=== PATIENT | female | born 1950 ===

== ENCOUNTER 2020-06-06 15:10 | Inpatient (IN) | payer MEDICARE, BC ==
[2020-06-06] MEDS ORDERED: Ondansetron PF 4 MG/2 ML Vial IVP PRN (16:48)
[2020-06-06] MEDS ORDERED: Calcium Carbonate 500 MG ChewTAB PO PRN (16:48)
[2020-06-06] MEDS ORDERED: Ondansetron ODT 4 MG TAB PO PRN (16:48)
[2020-06-06] MEDS ORDERED: Acetaminophen 325 MG TAB PO PRN (16:48)
[2020-06-06] MEDS ORDERED: Albuterol 200 PUFF (6.7GM INHALER) INH PRN (16:59)
[2020-06-06 17:05] VITALS: BMI 29.6
[2020-06-06] MEDS: Cefepime 1 GM in Sodium Chloride 0.9% 100 ML IVPB SCH (17:24)
[2020-06-06] MEDS ORDERED: GUAIFENESIN SF SOLN 200 MG/10 ML UDCUP PO PRN (18:55)
[2020-06-06] MEDS ORDERED: Melatonin 3 MG TAB PO PRN (18:55)
[2020-06-06] MEDS ORDERED: hydrALAZINE 20 MG/ML VIAL SLOW IVP PRN (18:55)
[2020-06-06 19:08] LABS: #Basophils 0.1 thou/uL (0.0-0.2); #Eosinphils 0.1 thou/uL (0.0-0.7); #Lymphocytes 1.1 thou/uL (1.20-3.40); #Monocytes 1.1 thou/uL (0.11-0.59); #Neutrophils 7.3 thou/uL (1.40-6.50); %Basophils 0.7 % (0.0-1.0); %Eosinophils 1.1 % (0.0-10.0); %Lymphocytes 11.1 % (21.0-51.0); %Monocytes 11.4 % (0.0-10.0); %Neutrophils 75.8 % (42.0-75.0); Hemoglobin 14.1 g/dL (12.0-16.0); Mean Corpuscular HGB CONC 31.9 g/dL (32.0-36.0); Mean Corpuscular Hemoglobin 25.9 pg (27.0-31.0); Mean Corpuscular Volume 81.2 fL (78.0-98.0); Mean Platelet Volume 8.1 fL (7.4-10.4); Platelet Count 426 thou/uL (130-400); Red Blood Cell (RBC) Count 5.43 mill/uL (4.20-5.40); White Blood Cell (WBC) Count 9.6 thou/uL (4.8-10.8)
[2020-06-06 19:20] LABS: PTT 31.5 sec (22.9-36.1); Prothrombin Time 13.6 sec (12.0-14.7)
[2020-06-06 19:21] LABS: D-Dimer Test 2.06 *mcg/mL (0.27-0.43)
[2020-06-06 19:34] LABS: Lactic Acid 1.7 mmol/L (0.5-2.2)
[2020-06-06 19:40] LABS: ALT (SGPT) 14 U/L (8-55); AST (SGOT) 21 U/L (5-34); Albumin 3.4 g/dL (3.4-4.8); Alkaline Phosphatase 111 U/L (40-110); Anion Gap 16 mmol/L (10-20); BUN (Urea Nitrogen) 7 mg/dL (9.8-20.1); Bilirubin, Total 0.4 mg/dL (0.2-1.2); CRP (Inflammatory) 7.03 mg/dL (= or < 0.5); Calc. Creatinine Clearance 68 mL/min (70-130); Calcium 8.9 mg/dL (7.8-10.44); Carbon Dioxide 21 mmol/L (23-31); Chloride 110 mmol/L (98-107); Globulin 4.5 g/dL (2.4-3.5); Glucose 118 mg/dL (80-115); Magnesium 2.3 mg/dL (1.6-2.6); Phosphorus 3.8 mg/dL (2.3-4.7); Potassium 3.3 mmol/L (3.5-5.1); Protein, Total 7.9 g/dL (5.8-8.1); Sodium 144 mmol/L (136-145)
[2020-06-06] MEDS ORDERED: Potassium Chloride 20 MEQ TAB PO SCH (21:00)
[2020-06-06] MEDS: Albuterol 200 PUFF (6.7GM INHALER) INH SCH ×2 (21:10→23:13)
[2020-06-06] MEDS ORDERED: Electrolyte Replacement Protocol 1 EACH FS SCH (21:30)
[2020-06-06] MEDS: Amlodipine 5 MG TAB PO SCH (21:35)
[2020-06-06] MEDS: Doxycycline 100 MG CAP PO SCH (21:35)
[2020-06-06] MEDS: Zinc Sulfate 220 MG CAP PO SCH (21:35)
[2020-06-06] MEDS: guaiFENesin ER 600 MG TAB PO SCH (21:36)
[2020-06-06] MEDS: Senokot S 8.6-50 MG TAB PO SCH (21:36)
[2020-06-07 02:47] LABS: SARS-CoV-2 PCR by NAA DETECTED (NotDetected)
[2020-06-07] MEDS: Albuterol 200 PUFF (6.7GM INHALER) INH SCH ×6 (03:16→22:43)
[2020-06-07] MEDS: Mometasone 200 MCG/Formoterol 5 MCG 120 PUFF INHALER INH SCH ×2 (05:50→21:25)
[2020-06-07] MEDS: Cefepime 1 GM in Sodium Chloride 0.9% 100 ML IVPB SCH (05:52)
[2020-06-07 06:12] LABS: #Eosinphils 0.1 thou/uL (0.0-0.7); #Lymphocytes 1.4 thou/uL (1.20-3.40); #Monocytes 1.1 thou/uL (0.11-0.59); #Neutrophils 6.7 thou/uL (1.40-6.50); %Basophils 0.1 % (0.0-1.0); %Eosinophils 1.6 % (0.0-10.0); %Lymphocytes 14.8 % (21.0-51.0); %Monocytes 12.2 % (0.0-10.0); %Neutrophils 71.4 % (42.0-75.0); Hemoglobin 13.3 g/dL (12.0-16.0); Mean Corpuscular HGB CONC 31.8 g/dL (32.0-36.0); Mean Corpuscular Hemoglobin 25.9 pg (27.0-31.0); Mean Corpuscular Volume 81.6 fL (78.0-98.0); Mean Platelet Volume 7.8 fL (7.4-10.4); Platelet Count 443 thou/uL (130-400); RBC Distribution Width 12.9 % (11.5-14.5); Red Blood Cell (RBC) Count 5.11 mill/uL (4.20-5.40); White Blood Cell (WBC) Count 9.4 thou/uL (4.8-10.8)
[2020-06-07 06:38] LABS: Anion Gap 15 mmol/L (10-20); BUN (Urea Nitrogen) 8 mg/dL (9.8-20.1); Calc. Creatinine Clearance 77 mL/min (70-130); Calcium 8.8 mg/dL (7.8-10.44); Carbon Dioxide 22 mmol/L (23-31); Chloride 111 mmol/L (98-107); Glucose 104 mg/dL (80-115); Potassium 3.5 mmol/L (3.5-5.1); Sodium 144 mmol/L (136-145)
[2020-06-07] MEDS: Ascorbic Acid 500 mg Chewable Tablet PO SCH (07:46)
[2020-06-07] MEDS: Senokot S 8.6-50 MG TAB PO SCH ×2 (07:46→21:26)
[2020-06-07] MEDS: Doxycycline 100 MG CAP PO SCH (07:47)
[2020-06-07] MEDS: guaiFENesin ER 600 MG TAB PO SCH ×2 (07:47→21:26)
[2020-06-07] MEDS: Multivit, Therapeutic 1 TAB PO SCH (07:47)
[2020-06-07] MEDS: Amlodipine 5 MG TAB PO SCH ×2 (07:47→21:26)
[2020-06-07] MEDS ORDERED: Potassium Chloride 20 MEQ TAB PO SCH ×2 (08:00)
[2020-06-07] MEDS ORDERED: Enoxaparin Sodium 40 MG/0.4 ML SYRINGE SC SCH (09:00)
[2020-06-07] MEDS: Dexamethasone 4 mg/ml Vial SLOW IVP SCH (09:10)
[2020-06-07] MEDS ORDERED: REMDESIVIR (EUA) 200 MG in Sodium Chloride 0.9% 250 ML 210 ML IV SCH (10:00)
[2020-06-07] MEDS: Zinc Sulfate 220 MG CAP PO SCH (21:26)
[2020-06-07] MEDS: Enoxaparin Sodium 40 MG/0.4 ML SYRINGE SC SCH (21:26)
[2020-06-08] MEDS: Albuterol 200 PUFF (6.7GM INHALER) INH SCH ×6 (02:13→23:45)
[2020-06-08] MEDS: Mometasone 200 MCG/Formoterol 5 MCG 120 PUFF INHALER INH SCH ×2 (06:09→17:58)
[2020-06-08 06:19] LABS: #Lymphocytes 1.1 thou/uL (1.20-3.40); #Monocytes 0.6 thou/uL (0.11-0.59); #Neutrophils 8.1 thou/uL (1.40-6.50); %Basophils 0.2 % (0.0-1.0); %Eosinophils 0.1 % (0.0-10.0); %Lymphocytes 10.8 % (21.0-51.0); %Monocytes 6.2 % (0.0-10.0); %Neutrophils 82.8 % (42.0-75.0); Hemoglobin 13.4 g/dL (12.0-16.0); Mean Corpuscular HGB CONC 31.5 g/dL (32.0-36.0); Mean Corpuscular Hemoglobin 26.3 pg (27.0-31.0); Mean Corpuscular Volume 83.4 fL (78.0-98.0); Mean Platelet Volume 8.2 fL (7.4-10.4); Platelet Count 395 thou/uL (130-400); RBC Distribution Width 12.8 % (11.5-14.5); Red Blood Cell (RBC) Count 5.09 mill/uL (4.20-5.40); White Blood Cell (WBC) Count 9.8 thou/uL (4.8-10.8)
[2020-06-08 06:45] LABS: ALT (SGPT) 10 U/L (8-55); AST (SGOT) 13 U/L (5-34); Albumin 3.3 g/dL (3.4-4.8); Alkaline Phosphatase 89 U/L (40-110); Anion Gap 13 mmol/L (10-20); BUN (Urea Nitrogen) 12 mg/dL (9.8-20.1); Bilirubin, Total 0.4 mg/dL (0.2-1.2); CRP (Inflammatory) 3.93 mg/dL (= or < 0.5); Calc. Creatinine Clearance 76 mL/min (70-130); Calcium 8.8 mg/dL (7.8-10.44); Carbon Dioxide 20 mmol/L (23-31); Chloride 111 mmol/L (98-107); Glucose 113 mg/dL (80-115); Potassium 4.3 mmol/L (3.5-5.1); Protein, Total 7.3 g/dL (5.8-8.1); Sodium 140 mmol/L (136-145)
[2020-06-08] MEDS: Ascorbic Acid 500 mg Chewable Tablet PO SCH (07:56)
[2020-06-08] MEDS: Senokot S 8.6-50 MG TAB PO SCH ×2 (07:56→20:41)
[2020-06-08] MEDS: Multivit, Therapeutic 1 TAB PO SCH (07:57)
[2020-06-08] MEDS: guaiFENesin ER 600 MG TAB PO SCH ×2 (07:57→20:41)
[2020-06-08] MEDS: Amlodipine 5 MG TAB PO SCH ×2 (07:57→20:41)
[2020-06-08] MEDS: Enoxaparin Sodium 40 MG/0.4 ML SYRINGE SC SCH ×2 (07:57→20:41)
[2020-06-08] MEDS: Dexamethasone 4 mg/ml Vial SLOW IVP SCH (07:58)
[2020-06-08] MEDS: REMDESIVIR (EUA) 100 MG in Sodium Chloride 0.9% 250 ML 230 ML IV SCH (11:30)
[2020-06-08] MEDS: Zinc Sulfate 220 MG CAP PO SCH (20:41)
[2020-06-09] MEDS: Albuterol 200 PUFF (6.7GM INHALER) INH SCH ×6 (03:58→22:24)
[2020-06-09] MEDS: Mometasone 200 MCG/Formoterol 5 MCG 120 PUFF INHALER INH SCH ×2 (06:19→18:06)
[2020-06-09 06:41] LABS: #Lymphocytes 1.2 thou/uL (1.20-3.40); #Monocytes 0.9 thou/uL (0.11-0.59); %Basophils 0.2 % (0.0-1.0); %Eosinophils 0.1 % (0.0-10.0); %Lymphocytes 11.9 % (21.0-51.0); %Monocytes 8.8 % (0.0-10.0); Hemoglobin 13.3 g/dL (12.0-16.0); Mean Corpuscular HGB CONC 31.9 g/dL (32.0-36.0); Mean Corpuscular Hemoglobin 26.8 pg (27.0-31.0); Mean Corpuscular Volume 83.9 fL (78.0-98.0); Platelet Count 379 thou/uL (130-400); Red Blood Cell (RBC) Count 4.98 mill/uL (4.20-5.40); White Blood Cell (WBC) Count 10.1 thou/uL (4.8-10.8)
[2020-06-09 07:02] LABS: ALT (SGPT) 16 U/L (8-55); AST (SGOT) 16 U/L (5-34); Albumin 3.3 g/dL (3.4-4.8); Alkaline Phosphatase 91 U/L (40-110); Anion Gap 14 mmol/L (10-20); BUN (Urea Nitrogen) 15 mg/dL (9.8-20.1); Bilirubin, Total 0.4 mg/dL (0.2-1.2); Calc. Creatinine Clearance 83 mL/min (70-130); Calcium 8.9 mg/dL (7.8-10.44); Carbon Dioxide 19 mmol/L (23-31); Chloride 115 mmol/L (98-107); Glucose 90 mg/dL (80-115); Potassium 3.8 mmol/L (3.5-5.1); Protein, Total 7.3 g/dL (5.8-8.1); Sodium 144 mmol/L (136-145)
[2020-06-09] MEDS: Ascorbic Acid 500 mg Chewable Tablet PO SCH (09:05)
[2020-06-09] MEDS: Amlodipine 5 MG TAB PO SCH ×2 (09:05→20:06)
[2020-06-09] MEDS: Enoxaparin Sodium 40 MG/0.4 ML SYRINGE SC SCH ×2 (09:06→20:04)
[2020-06-09] MEDS: guaiFENesin ER 600 MG TAB PO SCH ×2 (09:06→20:04)
[2020-06-09] MEDS: Dexamethasone 4 mg/ml Vial SLOW IVP SCH (09:06)
[2020-06-09] MEDS: Multivit, Therapeutic 1 TAB PO SCH (09:07)
[2020-06-09] MEDS: Senokot S 8.6-50 MG TAB PO SCH ×2 (09:07→20:04)
[2020-06-09] MEDS: REMDESIVIR (EUA) 100 MG in Sodium Chloride 0.9% 250 ML 230 ML IV SCH (11:19)
[2020-06-09] MEDS: Zinc Sulfate 220 MG CAP PO SCH (20:04)
[2020-06-10] MEDS: Albuterol 200 PUFF (6.7GM INHALER) INH SCH ×6 (02:30→22:30)
[2020-06-10] MEDS: Mometasone 200 MCG/Formoterol 5 MCG 120 PUFF INHALER INH SCH ×2 (06:19→18:30)
[2020-06-10 06:27] LABS: #Lymphocytes 1.5 thou/uL (1.20-3.40); #Monocytes 1.1 thou/uL (0.11-0.59); #Neutrophils 8.9 thou/uL (1.40-6.50); %Basophils 0.1 % (0.0-1.0); %Eosinophils 0.1 % (0.0-10.0); %Lymphocytes 12.9 % (21.0-51.0); %Monocytes 9.6 % (0.0-10.0); %Neutrophils 77.3 % (42.0-75.0); Hemoglobin 12.8 g/dL (12.0-16.0); Mean Corpuscular HGB CONC 30.8 g/dL (32.0-36.0); Mean Corpuscular Hemoglobin 25.3 pg (27.0-31.0); Mean Corpuscular Volume 82.2 fL (78.0-98.0); Mean Platelet Volume 8.5 fL (7.4-10.4); Platelet Count 380 thou/uL (130-400); Red Blood Cell (RBC) Count 5.04 mill/uL (4.20-5.40); White Blood Cell (WBC) Count 11.6 thou/uL (4.8-10.8)
[2020-06-10 06:46] LABS: ALT (SGPT) 20 U/L (8-55); AST (SGOT) 22 U/L (5-34); Albumin 3.4 g/dL (3.4-4.8); Alkaline Phosphatase 95 U/L (40-110); Anion Gap 12 mmol/L (10-20); BUN (Urea Nitrogen) 18 mg/dL (9.8-20.1); Bilirubin, Total 0.4 mg/dL (0.2-1.2); Calc. Creatinine Clearance 86 mL/min (70-130); Calcium 9.2 mg/dL (7.8-10.44); Carbon Dioxide 25 mmol/L (23-31); Chloride 111 mmol/L (98-107); Glucose 89 mg/dL (80-115); Potassium 3.7 mmol/L (3.5-5.1); Protein, Total 7.4 g/dL (5.8-8.1); Sodium 144 mmol/L (136-145)
[2020-06-10] MEDS: Ascorbic Acid 500 mg Chewable Tablet PO SCH (08:40)
[2020-06-10] MEDS: Amlodipine 5 MG TAB PO SCH ×2 (08:40→20:49)
[2020-06-10] MEDS: Multivit, Therapeutic 1 TAB PO SCH (08:40)
[2020-06-10] MEDS: Enoxaparin Sodium 40 MG/0.4 ML SYRINGE SC SCH ×2 (08:40→20:49)
[2020-06-10] MEDS: Senokot S 8.6-50 MG TAB PO SCH ×2 (08:40→20:50)
[2020-06-10] MEDS: guaiFENesin ER 600 MG TAB PO SCH ×2 (08:40→20:50)
[2020-06-10] MEDS: Dexamethasone 4 mg/ml Vial SLOW IVP SCH (08:41)
[2020-06-10] MEDS: REMDESIVIR (EUA) 100 MG in Sodium Chloride 0.9% 250 ML 230 ML IV SCH (12:54)
[2020-06-10] MEDS: Zinc Sulfate 220 MG CAP PO SCH (20:50)
[2020-06-11] MEDS: Albuterol 200 PUFF (6.7GM INHALER) INH SCH ×6 (02:32→20:56)
[2020-06-11 06:01] LABS: #Lymphocytes 1.2 thou/uL (1.20-3.40); #Neutrophils 7.8 thou/uL (1.40-6.50); %Basophils 0.1 % (0.0-1.0); %Eosinophils 0.1 % (0.0-10.0); %Lymphocytes 11.7 % (21.0-51.0); %Monocytes 9.9 % (0.0-10.0); %Neutrophils 78.2 % (42.0-75.0); Hemoglobin 13.1 g/dL (12.0-16.0); Mean Corpuscular HGB CONC 30.6 g/dL (32.0-36.0); Mean Corpuscular Hemoglobin 25.2 pg (27.0-31.0); Mean Corpuscular Volume 82.3 fL (78.0-98.0); Mean Platelet Volume 8.5 fL (7.4-10.4); Platelet Count 387 thou/uL (130-400); RBC Distribution Width 13.3 % (11.5-14.5); White Blood Cell (WBC) Count 9.9 thou/uL (4.8-10.8)
[2020-06-11] MEDS: Mometasone 200 MCG/Formoterol 5 MCG 120 PUFF INHALER INH SCH ×2 (06:05→17:44)
[2020-06-11 06:16] LABS: ALT (SGPT) 21 U/L (8-55); AST (SGOT) 21 U/L (5-34); Albumin 3.2 g/dL (3.4-4.8); Alkaline Phosphatase 97 U/L (40-110); Bilirubin, Direct 0.2 mg/dL (0.1-0.3); Bilirubin, Total 0.3 mg/dL (0.2-1.2); Protein, Total 6.9 g/dL (5.8-8.1)
[2020-06-11 06:18] LABS: ALT (SGPT) 21 U/L (8-55); AST (SGOT) 23 U/L (5-34); Albumin 3.2 g/dL (3.4-4.8); Alkaline Phosphatase 97 U/L (40-110); Anion Gap 13 mmol/L (10-20); BUN (Urea Nitrogen) 17 mg/dL (9.8-20.1); Bilirubin, Total 0.3 mg/dL (0.2-1.2); Calc. Creatinine Clearance 92 mL/min (70-130); Calcium 8.9 mg/dL (7.8-10.44); Carbon Dioxide 21 mmol/L (23-31); Chloride 112 mmol/L (98-107); Globulin 3.8 g/dL (2.4-3.5); Glucose 82 mg/dL (80-115); Sodium 142 mmol/L (136-145)
[2020-06-11] MEDS: guaiFENesin ER 600 MG TAB PO SCH ×2 (08:14→20:44)
[2020-06-11] MEDS: Ascorbic Acid 500 mg Chewable Tablet PO SCH (08:14)
[2020-06-11] MEDS: Multivit, Therapeutic 1 TAB PO SCH (08:14)
[2020-06-11] MEDS: Enoxaparin Sodium 40 MG/0.4 ML SYRINGE SC SCH ×2 (08:14→20:43)
[2020-06-11] MEDS: Senokot S 8.6-50 MG TAB PO SCH ×3 (08:14→20:44)
[2020-06-11] MEDS: Amlodipine 5 MG TAB PO SCH ×2 (08:14→20:44)
[2020-06-11] MEDS: Dexamethasone 4 mg/ml Vial SLOW IVP SCH (08:15)
[2020-06-11] MEDS: REMDESIVIR (EUA) 100 MG in Sodium Chloride 0.9% 250 ML 230 ML IV SCH (12:57)
[2020-06-11] MEDS: Zinc Sulfate 220 MG CAP PO SCH (20:43)
[2020-06-12] MEDS: Albuterol 200 PUFF (6.7GM INHALER) INH SCH ×3 (02:16→10:56)
[2020-06-12] MEDS: Mometasone 200 MCG/Formoterol 5 MCG 120 PUFF INHALER INH SCH (05:41)
[2020-06-12] MEDS: Multivit, Therapeutic 1 TAB PO SCH (08:09)
[2020-06-12] MEDS: Ascorbic Acid 500 mg Chewable Tablet PO SCH (08:09)
[2020-06-12] MEDS: Enoxaparin Sodium 40 MG/0.4 ML SYRINGE SC SCH (08:09)
[2020-06-12] MEDS: guaiFENesin ER 600 MG TAB PO SCH (08:10)
[2020-06-12] MEDS: Amlodipine 5 MG TAB PO SCH (08:10)
[2020-06-12] MEDS: Dexamethasone 4 mg/ml Vial SLOW IVP SCH (08:11)
[2020-06-12] MEDS: Senokot S 8.6-50 MG TAB PO SCH (08:12)
[2020-06-12 08:29] LABS: ALT (SGPT) 23 U/L (8-55); AST (SGOT) 20 U/L (5-34); Albumin 3.1 g/dL (3.4-4.8); Alkaline Phosphatase 91 U/L (40-110); Anion Gap 12 mmol/L (10-20); BUN (Urea Nitrogen) 22 mg/dL (9.8-20.1); Bilirubin, Total 0.3 mg/dL (0.2-1.2); CRP (Inflammatory) 0.57 mg/dL (= or < 0.5); Calc. Creatinine Clearance 81 mL/min (70-130); Calcium 8.6 mg/dL (7.8-10.44); Carbon Dioxide 23 mmol/L (23-31); Chloride 109 mmol/L (98-107); Globulin 3.4 g/dL (2.4-3.5); Glucose 97 mg/dL (80-115); Potassium 3.3 mmol/L (3.5-5.1); Protein, Total 6.5 g/dL (5.8-8.1); Sodium 141 mmol/L (136-145)
[2020-06-12 08:44] LABS: Band 3 % (5-11); Eosinophils 3 % (0-10); Hemoglobin 12.5 g/dL (12.0-16.0); Lymphocytes 15 % (21-51); MDiff Complete? YES; Mean Corpuscular HGB CONC 30.5 g/dL (32.0-36.0); Mean Corpuscular Hemoglobin 25.1 pg (27.0-31.0); Mean Corpuscular Volume 82.2 fL (78.0-98.0); Mean Platelet Volume 8.8 fL (7.4-10.4); Monocytes 14 % (0-10); Neutrophil 65 % (42-75); Platelet Count 356 thou/uL (130-400); RBC Distribution Width 13.4 % (11.5-14.5); White Blood Cell (WBC) Count 12.5 thou/uL (4.8-10.8)
[2020-06-12] MEDS ORDERED: Potassium Chloride 20 MEQ TAB PO SCH (09:45)
[2020-06-12 11:25] VITALS: BP 154/85; TEMP 98.2
== END 2020-06-12 11:19 | disposition home health service (06) | DRG 177 ==
LOC: T4-A 16:05
PROVIDERS: ADMIT Internal Medicine; ATTEND Internal Medicine
PROC: 8E0ZXY6 Isolation (ICD-10-PCS; 2020-06-06)
PROC: XW13325 Transfusion of Convalescent Plasma (Nonautologous) into Peripheral Vein, Percutaneous Approach, New Technology Group 5 (ICD-10-PCS; principal; 2020-06-07)
PROC: XW033E5 Introduction of Remdesivir Anti-infective into Peripheral Vein, Percutaneous Approach, New Technology Group 5 (ICD-10-PCS; 2020-06-07)
DX: U07.1 COVID-19 (principal); J12.82 Pneumonia due to coronavirus disease 2019; J96.01 Acute respiratory failure with hypoxia; I10 Essential (primary) hypertension; E87.6 Hypokalemia; R94.31 Abnormal electrocardiogram [ECG] [EKG]; E87.5 Hyperkalemia; E88.09 Other disorders of plasma-protein metabolism, not elsewhere classified; Z90.710 Acquired absence of both cervix and uterus; Z82.49 Family history of ischemic heart disease and other diseases of the circulatory system; Z79.899 Other long term (current) drug therapy
CPT/HCPCS: 36415; 36430; 80048; 80053; 82728; 83605; 83735; 83880; 84100; 84145; 84484; 85025; 85379; 85610; 85730; 86140; 86850; 86900; 86901; 87635; J0692; J1100; J1650; J3490; J7050; P9017; U0003; U0005